=== PATIENT | female | born 1955 | race Caucasian/White ===

== ENCOUNTER → 2018-03-16 | Outpatient (REF) | payer OTHER ==
[2018-03-16 14:39] LABS: APPEARANCE, URINE CLEAR (CLEAR); BACTERIA, URINE AUTO 1+ (NEGATIVE); BILIRUBIN, URINE AUTO NEGATIVE (NEGATIVE); BLOOD, URINE BLOOD NEGATIVE (NEGATIVE); COLOR, URINE STRAW (YELLOW); GLUCOSE, URINE (UA) AUTO NEGATIVE (NEGATIVE); KETONE, URINE AUTO NEGATIVE (NEGATIVE); LEUKOCYTE ESTERASE, URINE AUTO NEGATIVE (NEGATIVE); NITRITE, URINE AUTO NEGATIVE (NEGATIVE); PROTEIN, URINE AUTO NEGATIVE (NEGATIVE); RBC, URINE AUTO 1 /HPF (0-3); SPECIFIC GRAVITY URINE AUTO 1.004 (1.002-1.035); SQUAMOUS EPITHELIAL CELL UR AU 1 /HPF (0-6); UROBILINOGEN, URINE AUTO 0.2 mg/dL (0.0-2.0); WBC, URINE AUTO 1 /HPF (0-3)
== END ==
LOC: M SMT 13:42
DX: N39.0 Urinary tract infection, site not specified (principal); N32.89 Other specified disorders of bladder
CPT/HCPCS: 81001

== ENCOUNTER → 2018-03-23 | Outpatient (CLI) | payer OTHER ==
[~2018-03-23] MED LIST: ISOVUE-370 76% 100ML VIAL (Q9967) As Ordered ONE
--- NOTE | 2018-03-23 12:29 | REP ---
INTRAVENOUS UROGRAM WITH NEPHROTOMOGRAPHY: HISTORY: UTI. 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 No comparison imaging. CONTRAST ENHANCEMENT DOSE: 100 mL of intravenous Isovue 370. 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 No urinary tract calculus seen. Multiple phleboliths. Normal bowel gas pattern. Psoas margins and flank stripes are intact. Sequential films taken after bolus administration of iodinated contrast including nephrotomograms show prompt symmetrical function and smooth, normal sized kidneys bilaterally. No intrarenal mass is seen on nephrotomography. 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 This correlates with the history. There is no evidence of obstruction or deformity. The bladder is smooth in margins. No filling defect seen. Left ureter is normal in appearance. No filling defect is seen in the upper tracts on either side. Postvoid image shows complete emptying of the bladder. 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 Otherwise no significant abnormality. Electronically Signed by Evangelista Koenig MD 03/23/2018 03:10 P
== END ==
LOC: M RAD 10:05
PROVIDERS: ATTEND Specialist
DX: N39.0 Urinary tract infection, site not specified (principal); Z96.641 Presence of right artificial hip joint
CPT/HCPCS: 74400; Q9967